=== PATIENT | female | born 1975 | race Caucasian/White ===

== ENCOUNTER 2023-11-23 14:07 | Emergency (ER) | payer OTHER ==
[~2023-11-23] VITALS: Ht 165.1 cm; Wt 68.0 kg
[2023-11-23 14:31] VITALS: BP 136/84; TEMP 98.4; O2SAT 99
== END 2023-11-23 15:17 | disposition home or self-care (01) ==
LOC: ER 14:20
DX: S50.871A Other superficial bite of right forearm, initial encounter (principal); W55.01XA Bitten by cat, initial encounter; Y93.89 Activity, other specified; Y92.098 Other place in other non-institutional residence as the place of occurrence of the external cause; Y99.8 Other external cause status